=== PATIENT | male | born 1955 | race Caucasian/White ===

== ENCOUNTER 2021-02-05 22:31 | Emergency (ER) | payer BC, OTHER ==
[~2021-02-05] VITALS: Ht 193 cm; Wt 68.0 kg
[2021-02-05 22:34] VITALS: BP_SYST 130
--- NOTE | 2021-02-05 22:40 | NUR ---
RECEIVED PT AWAKE, ABTUNDED, PT IS INTOXICATED. SEEN BY ER .
[2021-02-05] MEDS ORDERED: NACL 0.9% 2,000 ML IV ONE (23:45)
[2021-02-05] MEDS ORDERED: ONDANSETRON HCL 4 MG/2 ML VIAL IVP ONE (23:45)
[2021-02-05] MEDS ORDERED: ONDANSETRON HCL 4 MG/2 ML VIAL ONE (23:46)
--- NOTE | 2021-02-06 00:30 | NUR ---
IVF 2L NS INFUSED, PT AAOX4, AND COMMUNICATING APPROPIATELY. PT ASKED FOR WATER AND APPLE JUICE. TOLERATED WELL, PENDING LAB RESULT FOR DISPO DETERMINATION.
[2021-02-06 01:37] LABS: CALCIUM 8.2 mg/dL (8.4-11.0); CREATININE 1.19 mg/dL (0.55-1.30); POTASSIUM 4.5 mmol/L (3.5-5.1)
[2021-02-06 01:38] LABS: BASOPHILS % (AUTO) 0.3 % (0.0-2.0); LYMPHOCYTES # (AUTO) 1.6 K/uL (1.0-5.5); LYMPHOCYTES % (AUTO) 12.9 % (20.5-51.5); MEAN CORPUSCULAR HEMOGLOBIN 28 pg (27-31); MEAN CORPUSCULAR HGB CONC 33 % (32-36); MEAN CORPUSCULAR VOLUME 85 fL (79.0-98.0); MONOCYTES # (AUTO) 0.6 K/uL (0.0-1.0); MONOCYTES % (AUTO) 5.1 % (1.7-9.3); NEUTROPHILS # (AUTO) 9.8 K/uL (1.8-7.7); NEUTROPHILS % (AUTO) 81.7 % (40.0-70.0); PLATELET COUNT (AUTO) 293 K/uL (130-430); RED BLOOD CELL COUNT(AUTO) 5.43 MIL/uL (4.2-6.2); RED CELL DISTRIBUTION WIDTH 16.5 % (9.0-15.0)
[2021-02-06 01:43] LABS: ALBUMIN 3.4 g/dL (3.4-4.8); TOTAL BILIRUBIN 0.4 mg/dL (0.0-1.0)
[2021-02-06 02:25] VITALS: BP_SYST 131
--- NOTE | 2021-02-06 02:25 | NUR ---
Patient given written and verbal discharge instructions and verbalizes understanding. ER MD discussed with patient the results and treatment provided. Patient in stable condition. ID arm band removed. IV catheter removed intact and dressing applied, no active bleeding. Patient educated on pain management and to follow up with PMD. Opportunity for questions provided and answered. D/C home w/ spouse.
== END 2021-02-06 02:25 | disposition home or self-care (01) ==
LOC: SED 22:31
DX: F10.229 Alcohol dependence with intoxication, unspecified (principal); R50.9 Fever, unspecified; Y90.5 Blood alcohol level of 100-119 mg/100 ml
CPT/HCPCS: 36415; 80053; 85025; 96361; 96374; 99283; G0482; J2405; J7030